=== PATIENT | male | born 1960 | race Hispanic/Latino ===

== ENCOUNTER 2023-07-09 12:16 | Emergency (ER) | payer OTHER ==
[~2023-07-09] VITALS: Ht 180.3 cm; Wt 117.9 kg
[2023-07-09] MEDS ORDERED: CYCLOBENZAPRINE HCL 10 MG TABLET PO SCH (15:00)
[2023-07-09] MEDS ORDERED: KETOROLAC 30MG VIAL (30MG/ML) IM SCH (15:00)
[2023-07-09] MEDS ORDERED: CYCL10TA16 PO (15:26)
[2023-07-09] MEDS ORDERED: IBUP-2070 PO (15:26)
[2023-07-09 15:59] VITALS: BP 124/78; PULSE 75; RESP 18; O2SAT 99
[2023-07-10] MEDS ORDERED: CEPH500B PO (13:18)
== END 2023-07-09 16:00 | disposition home or self-care (01) ==
LOC: EDH 12:16
DX: S83.8X1A Sprain of other specified parts of right knee, initial encounter (principal); M25.551 Pain in right hip; I10 Essential (primary) hypertension; E11.9 Type 2 diabetes mellitus without complications; Z90.49 Acquired absence of other specified parts of digestive tract; Z98.890 Other specified postprocedural states; Z88.8 Allergy status to other drugs, medicaments and biological substances; Z87.440 Personal history of urinary (tract) infections; Z95.1 Presence of aortocoronary bypass graft; W01.0XXA Fall on same level from slipping, tripping and stumbling without subsequent striking against object, initial encounter; Y93.89 Activity, other specified; Y92.89 Other specified places as the place of occurrence of the external cause; Y99.8 Other external cause status
CPT/HCPCS: 99284; 73502; 73562; 96372; J1885

== ENCOUNTER 2023-07-10 09:10 | Emergency (ER) | payer OTHER ==
[~2023-07-10] VITALS: Ht 180.3 cm; Wt 117.9 kg
[~2023-07-10 09:10] MED LIST: CYCL10TA16 PO; IBUP-2070 PO
[2023-07-10] MEDS ORDERED: DEXAMETHASONE SOD PHOSPHATE 4 MG/ML 1ML VIAL IV ONE (10:30)
[2023-07-10] MEDS ORDERED: KETOROLAC 30MG VIAL (30MG/ML) IVP ONE (10:30)
[2023-07-10] MEDS ORDERED: LACTATED RINGERS 1000ML 1,000 ML IV ONE (10:30)
[2023-07-10] MEDS ORDERED: ONDANSETRON 4MG INJ IVP ONE (10:30)
[2023-07-10] MEDS ORDERED: FAMOTIDINE 20MG VIAL IV ONE (10:30)
[2023-07-10 10:37] LABS: BASOPHILS # (AUTO) 0.02 K/uL (0.00-0.20); BASOPHILS % (AUTO) 0.3 % (0.0-5.0); EOSINOPHILS # (AUTO) 0.35 K/uL (0.00-0.70); EOSINOPHILS % (AUTO) 4.7 % (0.0-8.0); HEMATOCRIT 39.9 % (42-54); IMMATURE GRANULOCYTE ABSOLUTE 0.03 K/uL (0-1); LYMPHOCYTES # (AUTO) 1.8 K/uL (1.0-4.8); LYMPHOCYTES % (AUTO) 24.1 % (21.0-51.0); MEAN CORPUSCULAR HEMOGLOBIN 25.2 pg (27.0-33.0); MEAN CORPUSCULAR HGB CONC 31.3 g/dL (32.0-36.0); MEAN CORPUSCULAR VOLUME 80.4 fL (79-99); MONOCYTES # (AUTO) 0.6 K/uL (0.1-1.0); MONOCYTES % (AUTO) 8.1 % (3.0-13.0); NEUTROPHILS # (AUTO) 4.7 K/uL (1.8-7.7); NEUTROPHILS % (AUTO) 62.4 % (40.0-77.0); PLATELET COUNT (AUTO) 256 K/uL (130-400); RED BLOOD CELL COUNT(AUTO) 4.96 MIL/uL (4.50-6.20); RED CELL DISTRIBUTION WIDTH 19.9 % (11.0-15.5); WHITE BLOOD COUNT (AUTO) 7.5 K/uL (4.8-10.8)
[2023-07-10 10:38] LABS: APPEARANCE,URINE CLEAR (CLEAR); BILIRUBIN,URINE NEGATIVE (NEGATIVE); COLOR,URINE LIGHT-YELLOW (YELLOW); GLUCOSE, URINE (UA) 300 mg/dL (NEGATIVE); KETONES,URINE NEGATIVE (NEGATIVE); LEUKOCYTE ESTERASE ,URINE 250 Leu/uL (NEGATIVE); NITRATE,URINE NEGATIVE (NEGATIVE); OCCULT BLOOD,URINE NEGATIVE (NEGATIVE); PROTEIN,URINE 20 mg/dL (NEGATIVE); UROBILINOGEN,URINE 0.2 mg/dL (0.2-1.0)
[2023-07-10 10:42] LABS: ADD UA MICROSCOPIC YES
[2023-07-10 10:45] LABS: HYALINE CASTS, URINE 51-100 /LPF (0-1 /LPF); MUCUS,URINE RARE LPF (None Seen); SQUAMOUS EPITHELIAL CELL,UR FEW /HPF (0-2); YEAST,URINE BUDDING FEW /HPF (None Seen); YEAST,URINE HYPHAE FEW /HPF (None Seen)
[2023-07-10 10:54] LABS: CREATININE 1.7 mg/dL (0.5-1.5); POTASSIUM 3.6 mmol/L (3.5-5.1)
[2023-07-10 12:00] LABS: COVID19 (SARS ANTIGEN RAPID) PRESUMPTIVE NEGATIVE (NEGATIVE); INFLUENZA TYPE A Negative For Type A (NEGATIVE); INFLUENZA TYPE B Negative For Type B (NEGATIVE)
[2023-07-10] MEDS ORDERED: CEPH500B PO (13:18)
[2023-07-10] MEDS ORDERED: CEPHALEXIN 500 MG CAPSULE PO ONE (13:30)
[2023-07-10 13:52] VITALS: BP 152/68; PULSE 96; RESP 18; O2SAT 97
== END 2023-07-10 15:11 | disposition home or self-care (01) ==
LOC: EDH 09:10
DX: N39.0 Urinary tract infection, site not specified (principal); B34.9 Viral infection, unspecified; E11.9 Type 2 diabetes mellitus without complications; I10 Essential (primary) hypertension; Z88.8 Allergy status to other drugs, medicaments and biological substances; Z90.49 Acquired absence of other specified parts of digestive tract; Z95.1 Presence of aortocoronary bypass graft; Z95.5 Presence of coronary angioplasty implant and graft; Z20.822 Contact with and (suspected) exposure to COVID-19
CPT/HCPCS: 99284; 96374; 96361; 96375; 87426; 82550; 80048; 85025; 87088; 87804 ×2; 83605; 81001; 36415; J1100; J7120; J3490; J2405; J1885

== ENCOUNTER 2024-01-01 11:31 | Emergency (ER) | payer OTHER ==
[~2024-01-01] VITALS: Ht 180.3 cm; Wt 117.9 kg
[~2024-01-01 11:31] MED LIST changes: +CEPH500B PO
[2024-01-01] MEDS: CEPHALEXIN 500 MG CAPSULE PO ONE (12:18)
[2024-01-01] MEDS: ACETAMINOPHEN 500 MG TABLET PO ONE (12:18)
[2024-01-01] MEDS: NEOMY SULF/BACITRA/POLYMYXIN B 1 EACH PACKET TP ONE (12:19)
[2024-01-01] MEDS ORDERED: CEPH500B PO (12:25)
[2024-01-01] MEDS ORDERED: MUPI22O TP (12:25)
[2024-01-01 12:43] VITALS: BP 152/81; PULSE 78; RESP 18; O2SAT 98
== END 2024-01-01 13:04 | disposition home or self-care (01) ==
LOC: EDH 11:31
DX: S80.01XA Contusion of right knee, initial encounter (principal); S80.211A Abrasion, right knee, initial encounter; I10 Essential (primary) hypertension; E11.9 Type 2 diabetes mellitus without complications; Z79.899 Other long term (current) drug therapy; Z98.890 Other specified postprocedural states; Z90.49 Acquired absence of other specified parts of digestive tract; Z88.8 Allergy status to other drugs, medicaments and biological substances; W18.39XA Other fall on same level, initial encounter; Y93.89 Activity, other specified; Y92.89 Other specified places as the place of occurrence of the external cause; Y99.8 Other external cause status
CPT/HCPCS: 73562